=== PATIENT | female | born 1955 | race Caucasian/White ===

== ENCOUNTER → 2017-05-12 | Outpatient (CLI) | payer SELFPAY ==
[2017-05-14 16:01] LABS: HPV Genotype 16 Not Detected (NOTDET); HPV Genotype 18 Not Detected (NOTDET)
[2017-05-17 10:53] LABS: HPV High Risk Other Not Detected (NOTDET)
== END ==
LOC: LAB 16:30
PROVIDERS: Obstetrics & Gynecology Gynecology
DX: Z12.4 Encounter for screening for malignant neoplasm of cervix (principal)
CPT/HCPCS: 87624; G0123

== ENCOUNTER → 2018-05-19 | Outpatient (CLI) | payer SELFPAY ==
[2018-05-20 16:07] LABS: HPV 16 Negative (Negative); HPV 18 Negative (Negative); HPV OTHER HR TYPES Negative (Negative)
== END | disposition home or self-care (01) ==
LOC: LAB 12:17 → LAB SHORT 12:17
PROVIDERS: Obstetrics & Gynecology Gynecology
DX: Z12.4 Encounter for screening for malignant neoplasm of cervix (principal)
CPT/HCPCS: 87624; G0123

== ENCOUNTER → 2019-06-23 | Outpatient (CLI) | payer BC ==
[~2019-06-23] MED LIST: ASCO500 PO; BETA.05TO; Fish Oil 10001000 MG PO; IBUP800 PO; L-Lysine500 M1 PO; MULTIPLE VITAM1 EACH PO; TUMERIC PO; VITAMIN D350 MCG PO; Voltaren100 GM
== END | disposition home or self-care (01) ==
LOC: PLD 11:22 → LAB SHORT 11:22
DX: C44.519 Basal cell carcinoma of skin of other part of trunk (principal)
CPT/HCPCS: 88305

== ENCOUNTER → 2021-05-20 | Outpatient (CLI) | payer MEDICARE, BC | END | disposition home or self-care (01) | LOC: LAB SHORT 12:12 | DX: B75 Trichinellosis (principal) | CPT/HCPCS: 88305 ==